=== PATIENT | female | born 1960 | race Caucasian/White ===

== ENCOUNTER 2015-12-21 14:14 | Outpatient (RCR) | payer BC ==
--- OUTSIDE RECORDS SUMMARY | 2015-12-21 14:16 | XMS REPORT | Continuity of Care Document ---
Author Author [facility] Organization [facility] Address Unknown Phone Unavailable Care Team Providers Care Control Systems Designer Name Role Phone NO, LOCAL PHYSICIAN PCP Unavailable Insurance Providers Payer Name Policy Number Subscriber Name Relationship [id number] Misael Bunn W 01 Problems No problem information available. Medications No medication information available. Social History Social History Problem Response Recorded Date/Time Recent Foreign Travel N [place] 11/29/2015 1:27pm Hospital Discharge Instructions No hospital discharge instructions. Plan of Care Prescriptions See Medication Section Functional Status No functional status results. Allergies, Adverse Reactions, Alerts No known allergies. Immunizations No immunization records. Vital Signs No known vital signs results. Results Laboratory Results Test Name Result Units Flags Reference Collection Date/Time Result Date/ Time Comments Coagulation Factor VIII 169 % H 60-150 11/29/2015 1:50pm 12/01/2015 8: 15am Test performed at [facility], CLIA# [id number] [address] [place] [address] Homocysteine 11.8 umol/L H <=10.3 11/29/2015 1:50pm 11/30/2015 6:34am Test performed at [facility], CLIA# [id number] [address] [place] [address] Prothrombin Time 14.0 SEC 10.5-15.7 11/29/2015 1:50pm 12/01/2015 8: 40am ANITCOAG? UNKNOWN INR International Normalized Ratio 1.1 0.7-1.3 11/29/2015 1:50pm 8:40am Suggested Therapeutic Range for INR's should follow the recommendations by the [place] [employer] Evidence-based Clinical Practice Guidelines. Lupus Anticoagulant APTT 33.1 Seconds 24.4-41.7 11/29/2015 1:50pm 11/30 8:15am Test performed at [facility], CLIA# [id number] [address] [place] [address] Lupus Anticoagulant PTT Baseline 30.9 SEC 20.6-39.2 11/29/2015 1:50pm 12/01/2015 8:40am PTT INTERPRETIVE DATA [facility] no longer uses PTT for monitoring Unfractionated Heparin. The correct test for this purpose is Unfractionated Heparin by Anti-Xa Inhibition. Dil Tristan Viper Venom Time Screen 1.00 ratio 0.00-1.20 11/29/2015 1: 50pm 12/01/2015 8:21am Test performed at [facility], CLIA# [id number] [address] [place] [address] Anti-Cardiolipin IgG Antibody 1.0 GPL U 0.0-15.0 11/29/2015 1:50pm 8:15am Test performed at [facility], CLIA# [id number] [address] [place] [address] Anti-Cardiolipin IgM Antibody 5.3 MPL U 0.0-12.5 11/29/2015 1:50pm 8:15am Factor II (Prothrombin) Mutation Negative 11/29/2015 1:50pm 2015 3:51pm 11/29/2015 13:50 (Int Proth Gene) Interpretation: Negative study, Normal Wild Type (no mutant alleles detected) for the prothrombin gene mutation (see comment). This test is approximately 99% accurate. However, a negative result for any genetic test does not entirely rule out the possibility that this individual could be a carrier of a mutation not detected by this test. Genotypic false negative results may arise from trace contamination of reactions and from rate genetic variants that interfere with analysis. We encourage the physician to consider genetic counseling if deemed clinically necessary. Interpretive Data: The prothrombin gene (Factor II) is localized on chromosome 11. A point mutation of G to A at nucleotide position 73391 of the prothrombin gene (PG) defines the prothrombin gene mutation. Genomic DNA was prepared from submitted whole blood. Using the [employer] the 3' untranslated region of the prothrombin gene located on chromosome 11 was analyzed using a non-PCR signal amplification method utilizing an enzymatic hybridization mismatch recognition step with a fluorescent allele-specific probe for the guanine to adenine point mutation at nucleotide position 70555 defining the prothrombin gene mutation. Activated Protein C Resistance 2.32 ratio >=1.83 11/29/2015 1:50pm 3:30pm Follow-up testing for Factor V Leiden gene mutation suggested for patients testing positive for activated Protein C Resistance. Individuals with high inhibitor activity (eg. Antiphospholipid antibodies) may have an abnormal aPTT and lead to misleading results in this assay. Analysis of plasma may be perfromed in patients on oral anticoagulant therapy. There is no interference up to1 u/mL from unfractionated or low molecular weight heparin. Test performed at [facility], CLIA# [id number] [address] [place] [address] Lqyf-mwvt-7-Glycoprotein I IgM Ab 7.9 SGU 0.0-20.0 11/29/2015 1:50pm 8:14am Test performed at [facility], CLIA# [id number] [address] [place] [address] Jkjc-aeqx-0-Glycoprotein I IgG Ab 0.2 SGU 0.0-19.9 11/29/2015 1:50pm 8:14am Pathology Specimen Result FOOTNOTE 11/29/2015 1:50pm 12/06/2015 7: 48am Gema Bunn Clinical Pathology Report Accession Number Collected Date/Time Verified Date/Time [id number] 11/29/15 1:50:00 PM 12/05/15 9:33:17 AM Interpretation Hypercoagulability analyzer - mildly elevated homocysteine of doubtful significance; mildly increased factor VIII; no evidence of a lupus anticoagulant or the antiphospholipid antibody syndrome; no biochemical evidence of the factor V Leiden gene mutation. Ramon Ross M.D. Pathologist (Electronic Signature) BD 12/05/2015 Performing Location: [facility], [address] [place], [place] Laboratory Values DATE OF COLLECTION: 11/29/2015 13:50 COAGULATION STUDY RESULTS PATIENT RESULTS: NL RANGES PT: 14.0 10.5-15.7 sec PTT: 30.9 20.6-39.2 sec PTT-LA: 33.1 24.4-41.7 sec OTHER TESTING Test Ref Range Result DRVVT 0.00 - 1.20 1.00 CARDIOLIPIN IGG 0.0 - 15.0 1.0 GPLU CARDIOLIPIN IGM 0.0 - 12.5 5.3 MPLU BETA 2 GLYC IGG 0.0 - 19.9 0.2 SGU BETA 2 GLYC IGM 0.0 - 20.0 7.9 SMU PROT C RES >=1.83 2.32 ratio FACTOR II MUT Negative FACTOR VIII 60 - 150 169 % HOMOCYSTEINE <=10.3 11.8 umol/L Findings The prothrombin time and PTT using both standard and lupus sensitive reagents are normal. The dilute Tristan Viper venom time is normal. There is no evidence of a lupus anticoagulant. IgG and IgM anticardiolipin and anti-beta-2 glycoprotein I titers are normal. There is no evidence of the antiphospholipid antibody syndrome. There is no evidence of activated protein C resistance reasonably excluding the factor V Leiden gene mutation. There is no evidence of the prothrombin gene mutation. Homocysteine and factor VIII are elevated. Studies have shown patients with persistent elevation of factor VIII, greater than 150% activity, have an increased risk of venous thrombosis, and that this risk may be dose-dependent with a higher risk for higher activity levels. One study showed patients with very high levels, greater than 234%, are at risk for recurrent venous thrombosis. An association between elevated factor VIII and arterial thrombotic risk is supported by some epidemiologic studies. Interpretation of factor VIII can be difficult in the acute setting since factor VIII may act as an acute phase protein. To establish the diagnosis of persistent elevation of factor VIII activity, factor VIII should be increased on more than one occasion, at the patient's steady-state resting baseline and in the absence of an acute phase response. Care should be taken to avoid sampling during an acute illness or following vigorous exercise within the previous 24 hours. Elevated homocysteine may be a risk factor for arterial or venous thromboembolism. Serum homocysteine is generally tested in the fasting state with fasting levels of 15 to 30 umol/L considered moderate hyperhomocysteinemia. The significance of a value below 15umol/L is unclear. Homocysteine may be mildly elevated due to a variety of secondary causes including renal insufficiency, hypothyroidism, some drugs, various lifestyle factors, or vitamin B12, B6 or folate deficiency. However, some recent studies have failed to show benefit of vitamin replacement and lowering of homocysteine levels in reducing risk of major cardiovascular events in patients with established vascular disease or previous MS. Specimen Blood Clinical History History of chronic cholecystitis; evaluation for evidence of thrombophilia Procedures No known history of procedures. Encounters Encounter Location Arrival/Admit Date Discharge/Depart Date Attending Provider Discharged [facility] 11/29/15 1:27pm 4:21pm SALMA GRAMAJO MD
[2016-01-17] MEDS ORDERED: METF-478 PO (13:31)
== END 2016-03-20 | disposition home or self-care (01) ==
LOC: ONC 14:14
PROVIDERS: ATTEND Internal Medicine Hematology & Oncology
DX: I80.01 Phlebitis and thrombophlebitis of superficial vessels of right lower extremity (principal); R79.1 Abnormal coagulation profile; E11.9 Type 2 diabetes mellitus without complications; R19.7 Diarrhea, unspecified; F17.210 Nicotine dependence, cigarettes, uncomplicated; Z82.3 Family history of stroke; Z82.49 Family history of ischemic heart disease and other diseases of the circulatory system; Z79.01 Long term (current) use of anticoagulants
CPT/HCPCS: 99213